=== PATIENT | male | born 1990 | race African-American/Black ===

== ENCOUNTER 2016-12-27 05:14 | Emergency (ER) | payer OTHER ==
[2016-12-27] MEDS ORDERED: cefTRIAXone 1,000 MG in Lidocaine 1% 4 ML IM ONE (05:31)
[2016-12-27] MEDS ORDERED: Diphtheria,Pertussis(Acell),Tetanus Vaccine 0.5 ML Syringe IM ONE (05:31)
[2016-12-27] MEDS ORDERED: Lidocaine 1% 2 ML ONE (05:34)
[2016-12-27] MEDS ORDERED: cefTRIAXone 1,000 MG VIAL ONE (05:34)
[2016-12-27] MEDS ORDERED: Diphtheria,Pertussis(Acell),Tetanus Vaccine 0.5 ML Syringe ONE (05:35)
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
[2016-12-27] MEDS ORDERED: Lidocaine 1% 20 ML MDV INJECT ONE ×2 (06:32→06:34)
[2016-12-27] MEDS ORDERED: Bacitracin Oint 1 GM U/D Packet TOP ONE (06:34)
[2016-12-27 07:32] VITALS: BP 118/63
--- NOTE | 2016-12-28 14:22 | CR ---
EXAM DATE: 12/27/16 PATIENT'S AGE: 26 Patient: HEMALATHA CARVALHO Facility: [place], [place] Site . Site : 1990 Study: XRay Extremity Left [id number]/[id number] 5:49:13 AM Ordering Physician: Yaquelin Vasquez Final Report: INDICATION: injury TECHNIQUE: Three views of the left hand COMPARISON: None FINDINGS: Bones: No fractures or bone lesions. Joint spaces: Unremarkable. Soft tissues: Innumerable radiopaque densities throughout the left hand at the level of the metacarpophalangeal joints most pronounced ulnarly with associated subcutaneous emphysema and overlying skin injury. IMPRESSION: Innumerable radiopaque densities throughout the left hand at the level of the metacarpophalangeal joints most pronounced ulnarly with associated subcutaneous emphysema and overlying skin injury. No acute bony abnormality. Dictated by Dany Chavarria MD @ 12/27/2016 6:49:08 AM Dictated by: Dany Chavarria MD @ 12/27/2016 06:49:41 (Electronic Signature) Report Signed by Proxy. [facility]
== END 2016-12-27 07:30 | disposition home or self-care (01) ==
LOC: MW.ED 05:14
DX: S66.323A Laceration of extensor muscle, fascia and tendon of left middle finger at wrist and hand level, initial encounter (principal); S66.325A Laceration of extensor muscle, fascia and tendon of left ring finger at wrist and hand level, initial encounter; S61.217A Laceration without foreign body of left little finger without damage to nail, initial encounter; Z23 Encounter for immunization; X99.0XXA Assault by sharp glass, initial encounter
CPT/HCPCS: 12002; 73130; 90471; 90715; 96372; 99283; J0696; 99284

== ENCOUNTER 2017-09-18 05:32 | Emergency (ER) | payer OTHER ==
[2017-09-18 05:45] VITALS: BP 136/78
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
== END 2017-09-18 06:23 | disposition home or self-care (01) ==
LOC: MW.ED 05:32
DX: Z02.89 Encounter for other administrative examinations (principal); F17.210 Nicotine dependence, cigarettes, uncomplicated
CPT/HCPCS: 99282

== ENCOUNTER 2018-02-04 17:52 | Emergency (ER) | payer SELFPAY ==
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
[2018-02-04 18:16] VITALS: BP 131/78
== END 2018-02-04 18:15 ==
LOC: MW.ED 17:52
DX: Z02.89 Encounter for other administrative examinations (principal)
CPT/HCPCS: 99284